=== PATIENT | male | born 1995 | race Caucasian/White ===

== ENCOUNTER 2019-07-28 14:04 | Inpatient (IN) | payer BC ==
[2019-07-28] VITALS (10 sets, daily range): BP systolic 111–141; BP diastolic 55–83
[~2019-07-28] VITALS: Ht 185.4 cm; Wt 83.0 kg
[2019-07-28] MEDS ORDERED: PROSCAR5 MG ORAL (14:25)
[2019-07-28] MEDS ORDERED: ADDERAL20 MG ORAL (14:25)
[2019-07-28] MEDS ORDERED: Isovue-300 100ml vial INJ PRN (14:30)
--- NOTE | 2019-07-28 14:31 | NUR ---
ED Nurse Note: Pt from home came in due to RLQ abd. pain since saturday. Denies nausea/vomiting but states he has been having diarrhea. Last oral intake was at 10am this morning. AAO x4 and ambulatory with unlabored breathing.
[2019-07-28] MEDS ORDERED: Omnipaque-300 100ml vial INJ PRN (14:45)
[2019-07-28] MEDS ORDERED: Ketorolac 30mg Inj IV ONE (14:45)
--- NOTE | 2019-07-28 14:50 | NUR ---
ED Nurse Note: Pt is notified not to eat or drink at this time. Pt taken down for CT abdomen.
[2019-07-28] MEDS ORDERED: Bupivacaine 0.25% Inj 30ml INJ ONE (15:08)
[2019-07-28] MEDS ORDERED: Lidocaine 1% 10mg/ml/Epi 0.005mg/ml 30ml vial INJ ONE (15:09)
[2019-07-28] MEDS ORDERED: Bupivacaine w/Epi 0.5% 30ml Vial INJ ONE (15:09)
[2019-07-28 15:13] LABS: APPEARANCE,URINE CLEAR; BILIRUBIN, URINE NEGATIVE (NEGATIVE); GLUCOSE, URINE (UA) NEGATIVE (NEGATIVE); KETONES,URINE NEGATIVE (NEGATIVE); LEUKOCYTE ESTERASE ,URINE NEGATIVE (NEGATIVE); NITRITE,URINE NEGATIVE (NEGATIVE); PH,URINE 7 (4.5-8.0); PROTEIN,URINE NEGATIVE (NEGATIVE); UROBILINOGEN,URINE NORMAL MG/DL (0.0-1.0)
[2019-07-28 15:14] LABS: BASOPHILS % (AUTO) 0.8 % (0.0-2.0); EOSINOPHILS % (AUTO) 3.1 % (0.0-3.0); HEMATOCRIT 45.7 % (42.0-52.0); HEMOGLOBIN 15.9 G/DL (14.2-18.0); LYMPHOCYTES % (AUTO) 32.5 % (20.0-45.0); MEAN CORPUSCULAR VOLUME 85 FL (80-99); NEUTROPHILS % (AUTO) 57.5 % (45.0-75.0); PLATELET COUNT 249 K/UL (150-450); RED BLOOD COUNT 5.36 M/UL (4.70-6.10); RED CELL DISTRIBUTION WIDTH 10.6 % (11.6-14.8); WHITE BLOOD COUNT 9.3 K/UL (4.8-10.8)
--- NOTE | 2019-07-28 15:21 | Consultation ---
History of Present Illness General Date patient seen: Jul 28, 2019 Reason for Hospitalization: Abdominal Pain Present Illness HPI This is a very pleasant 24-year-old otherwise healthy male who presents to the emergency department at [facility] complaining of right lower quadrant abdominal pain. Patient states pain began approximate 3 days ago as sharp right lower quadrant pain without radiation. Pain persisted and he went to his primary care physician for evaluation, who astutely considered diagnosis to be potentially appendicitis. Surgery was called to evaluate. Patient seen, patient evaluated, chart reviewed. No nausea or vomiting. Subjective fevers. Diarrhea. Pain 8 out of 10 right lower quadrant. no prior episodes. no recent travel Allergies: Coded Allergies: No Known Allergies (Unverified , 07/28/19) Medication History Scheduled Dextroamphetamine/Amphetamine (Adderall 20 mg Tablet), 20 MG ORAL DAILY, ( Reported) Finasteride* (Proscar*), 5 MG ORAL DAILY, (Reported) Patient History History Provided By: Patient, Medical Record, PMD Healthcare decision maker Resuscitation status Advanced Directive on File Past Medical/Surgical History Past Medical/Surgical History: (1) Appendicitis Review of Systems Review of Symptoms General ROS: no weight loss or fever Psychological ROS: no depression or mood changes, no memory loss Ophthalmic ROS: no visual changes or eye irritation ENT ROS: no nasal congestion, hearing loss, dizziness Allergy and Immunology ROS: no allergic symptoms or urticaria Hematological and Lymphatic ROS: no swollen glands, unusual bleeding or bruising Endocrine ROS: no polyuria, polydipsia, weight changes, temperature intolerance Respiratory ROS: no cough, shortness of breath, or wheezing Cardiovascular ROS: no chest pain or dyspnea on exertion Gastrointestinal ROS: abdominal pain, no bright red blood in stool. Musculoskeletal ROS: no myalgias or arthralgias Neurological ROS: no TIA or stroke symptoms Dermatological ROS: no new or changing skin lesions, rashes or pruritis Physical Exam Physical Exam General appearance: alert, cooperative, no distress, appears stated age Head: Normocephalic, without obvious abnormality, atraumatic Eyes: conjunctivae/corneas clear. PERRL, EOM's intact. Fundi benign Throat: Lips, mucosa, and tongue normal. Teeth and gums normal Neck: supple, symmetrical, trachea midline, no adenopathy, thyroid: not enlarged, symmetric, no tenderness/mass/nodules, no carotid bruit and no JVD Lungs: clear to auscultation bilaterally Heart: regular rate and rhythm, S1, S2 normal, no murmur, click, rub or gallop Abdomen: soft, RLQ focal-tender with rebound and guarding. Bowel sounds normal. No masses, no organomegaly Extremities: extremities normal, atraumatic, no cyanosis or edema Pulses: 2+ and symmetric Skin: Skin color, texture, turgor normal. No rashes or lesions Neurologic: Grossly normal Last 24 Hour Vital Signs Date Time Temp Pulse Resp B/P (MAP) Pulse Ox O2 Delivery O2 Flow Rate FiO2 07/28/19 14:31 88 20 Room Air 07/28/19 14:21 99.1 72 16 120/75 (90) 98 Room Air Laboratory Tests Test 07/28/19 14:40 White Blood Count Pending Red Blood Count Pending Hemoglobin Pending Hematocrit Pending Mean Corpuscular Volume Pending Mean Corpuscular Hemoglobin Pending Mean Corpuscular Hemoglobin Concent Pending Red Cell Distribution Width Pending Platelet Count Pending Mean Platelet Volume Pending Neutrophils (%) (Auto) Pending Lymphocytes (%) (Auto) Pending Monocytes (%) (Auto) Pending Eosinophils (%) (Auto) Pending Basophils (%) (Auto) Pending Prothrombin Time Pending Prothromb Time International Ratio Pending Activated Partial Thromboplast Time Pending Urine Color Pending Urine Appearance Pending Urine pH Pending Urine Specific [place] Pending Urine Protein Pending Urine Glucose (UA) Pending Urine Ketones Pending Urine Blood Pending Urine Nitrite Pending Urine Bilirubin Pending Urine Urobilinogen Pending Urine Leukocyte Esterase Pending Sodium Level Pending Potassium Level Pending Chloride Level Pending Carbon Dioxide Level Pending Blood Urea Nitrogen Pending Creatinine Pending Estimat Glomerular Filtration Rate Pending Glucose Level Pending Calcium Level Pending Total Bilirubin Pending Aspartate Amino Transf (AST/SGOT) Pending Alanine Aminotransferase (ALT/SGPT) Pending Alkaline Phosphatase Pending Total Creatine Kinase Pending Total Protein Pending Albumin Pending Globulin Pending Lipase Pending Height (Feet): 6 Height (Inches): 1.00 Weight (Pounds): 185 Medications Current Medications Medications (Trade) Dose Ordered Sig/Fabrizio Route PRN Reason Start Time Stop Time Status Last Admin Dose Admin Iohexol (OMNIPAQUE-300 100ml) 100 ml NOW PRN INJ Radiology Procedure 07/28/19 14:45 07/30/19 14:33 Sodium Chloride 1,000 ml @ 999 mls/hr Q1H1M ONCE IV 07/28/19 14:27 07/28/19 15:27 07/28/19 14:49 Assessment/Plan Problem List: (1) Appendicitis Assessment & Plan: 24M acute appendicitis. subjective fevers, focal RLQ tenderness, CT consistent with acute uncomplicated appy npo iv fluids iv abx consent to OR for lap appy thank you ICD Codes: K37 - Unspecified appendicitis SNOMED: [id number] Escobar James Jul 28, 2019 15:21
[2019-07-28 15:22] LABS: ANION GAP 6 mmol/L (5-15); BLOOD UREA NITROGEN 13 mg/dL (7-18); CALCIUM 9.9 MG/DL (8.5-10.1); CARBON DIOXIDE 29 MMOL/L (21-32); CHLORIDE 104 MMOL/L (98-107); CREATININE 0.9 MG/DL (0.55-1.30); POTASSIUM 4.4 MMOL/L (3.5-5.1); SODIUM 139 MMOL/L (136-145)
--- NOTE | 2019-07-28 15:22 | Pre-Procedure Note/Attestation ---
Pre-Procedure Note/Attestation Complete Prior to Procedure Planned Procedure: not applicable Procedure Narrative: laparoscopic appendectomy Indications for Procedure Pre-Operative Diagnosis: acute appendicitis Attestation I attest that I discussed the nature of the procedure; its benefits; risks and complications; and alternatives (and the risks and benefits of such alternatives ), prior to the procedure, with the patient (or the patient's legal public health representative). I attest that, if there was a reasonable possibility of needing a blood transfusion, the patient (or the patient's legal public health representative) was given the [facility] standardized written summary, pursuant to the [place] Blood Safety Act ([place] Health and Safety Code # 1645, as amended). I attest that I re-evaluated the patient just prior to the surgery and that there has been no change in the patient's H&P, except as documented below: Escobar James Jul 28, 2019 15:22
[2019-07-28] MEDS ORDERED: Succinylcholine 20mg/ml 10ml vial ONE (15:24)
[2019-07-28] MEDS ORDERED: Rocuronium Bromide 50mg/5ml Inj IV ONE (15:24)
[2019-07-28 15:26] LABS: ALANINE AMINOTRANSFERASE 83 U/L (12-78); ALBUMIN 4.1 G/DL (3.4-5.0); ALBUMIN/GLOBULIN RATIO 0.9 (1.0-2.7); ALKALINE PHOSPHATASE 83 U/L (46-116); ASPARTATE AMINO TRANSFERASE 27 U/L (15-37); BILIRUBIN,TOTAL 0.5 MG/DL (0.2-1.0); COLOR,URINE YELLOW; CREATINE KINASE 107 U/L (26-308)
[2019-07-28] MEDS ORDERED: Lidocaine 1% MPF 10mg/ml 5ml ONE (15:27)
[2019-07-28] MEDS ORDERED: Midazolam 2mg/2ml Inj ONE (15:27)
[2019-07-28] MEDS ORDERED: Propofol 200mg/20ml IV ONE (15:27)
[2019-07-28] MEDS ORDERED: Ketorolac 30mg Inj ONE (15:27)
[2019-07-28] MEDS ORDERED: fentaNYL 100 mcg/2 mL ONE (15:27)
[2019-07-28] MEDS ORDERED: Piperacillin/Tazobactam 3.375 GM in NS 110 ML IVPB ONE (15:30)
--- NOTE | 2019-07-28 15:33 | Emergency Room Report ---
History of Present Illness General Chief Complaint: Abdominal Pain Source: Patient, Medical Record, PMD Present Illness HPI 24-year-old male presents ED for evaluation. Patient complaining of abdominal pain. Started Saturday. Localized right lower quadrant, 8 out of 10, sharp, nonradiating. Notes nausea, denies vomiting. Notes some diarrhea. States he had a fever last 2 days. Was referred by PMD Dr. Gloria. Denies sick contacts or recent travel. No other aggravating relieving factors. Denies any other associated symptoms Allergies: Coded Allergies: No Known Allergies (Unverified , 07/28/19) Patient History Past Medical History: none Past Surgical History: none Pertinent Family History: none Social History: Denies: smoking, alcohol use, drug use Immunizations: UTD Reviewed Nursing Documentation: PMH: Agreed; PSxH: Agreed Nursing Documentation-PMH Past Medical History: No History, Except For Hx Neurological Problems: No - ADHD Review of Systems All Other Systems: negative except mentioned in HPI Physical Exam Vital Signs Date Time Temp Pulse Resp B/P (MAP) Pulse Ox O2 Delivery O2 Flow Rate FiO2 07/28/19 14:21 99.1 72 16 120/75 (90) 98 Room Air Sp02 EP Interpretation: reviewed, normal General Appearance: no apparent distress, alert, GCS 15, non-toxic Head: normocephalic, atraumatic Eyes: bilateral eye normal inspection, bilateral eye PERRL ENT: hearing grossly normal, normal pharynx, no angioedema, normal voice Neck: full range of motion, supple/symm/no masses Respiratory: chest non-tender, lungs clear, normal breath sounds, speaking full sentences Cardiovascular #1: regular rate, rhythm, no edema Cardiovascular #2: 2+ carotid (R), 2+ carotid (L), 2+ radial (R), 2+ radial (L) , 2+ dorsalis pedis (R), 2+ dorsalis pedis (L) Gastrointestinal: normal bowel sounds, soft, non-distended, no guarding, no rebound, tenderness - RLQ Rectal: deferred Genitourinary: normal inspection, no CVA tenderness Musculoskeletal: back normal, gait/station normal, normal range of motion, non- tender Neurologic: alert, oriented x3, responsive, motor strength/tone normal, sensory intact, speech normal Psychiatric: judgement/insight normal, memory normal, mood/affect normal, no suicidal/homicidal ideation Reflexes: 3+ bicep (R), 3+ bicep (L), 3+ tricep (R), 3+ tricep (L), 3+ knee (R) , 3+ knee (L) Lymphatic: no adenopathy Procedures Critical Care Time Critical Care Time i. I feel this is a highly complex case requiring extensive working including EKG/Rhythm strip, Xray/CT/US, Blood/urine lab work, repeat exams while in ED, and administration of strong opiates/narcotics for pain control, admission to hospital or close patient follow up. Total time: 30 min bedside evaluation and treatment excludes procedures (EKG). Reason for critical care: acute appendicitis Possible complications: hypotension, hypertension, OH, shock, arrhythmias, metabolic acidosis, end organ damage, respiratory failure. Interventions: labs, ivfs, meds, CT, consultation with surgery. Course: Presenting with right lower quadrant pain. Reported fever. Labs unremarkable. Clinical exam highly concerning for appendicitis. Surgery at bedside to evaluate patient. CT shows acute appendicitis. Patient made NPO. Zosyn given. Patient will be taken to the OR emergently Consultations: nursing staff, EMS, family Performed by: Dr Jack Tolerated well condition = serious j. because of unstable vital signs this patient had a condition that could potentially threaten life or limb. I feel this is a critical patient who required my full attention while patient was considered critical. Total Critical Care Time excluding procedures was greater than 35 minutes Medical Decision Making Diagnostic Impression: Primary Impression: Appendicitis Qualified Codes: K35.80 - Unspecified acute appendicitis ER Course Hospital Course 24-year-old M presents to ED with RLQ pain with anorexia, vomiting Differential diagnoses include: Appendicitis, cholecystitis, small bowel obstruction Clinical course Patient placed on stretcher. campus monitor. After initial history and physical I ordered labs, IV fluids, UA, pain medication and CT scan Labs - no leukocytosis noted, Hb/Hct stable. electrolytes ok CT abdomen and pelvis - appendicits Antibiotics given. evaluated by Dr James at bedside. Case discussed with Dr. Park and he agreed to accept the patient to his service for further care and support I feel this is a highly complex case requiring extensive working including EKG/ Rhythm strip, Xray/CT/US, Blood/urine lab work, repeat exams while in ED, and administration of strong opiates/narcotics for pain control, admission to hospital or close patient follow up. Diagnosis - appendicitis Patient taken to OR in serious condition Labs Test 07/28/19 14:40 White Blood Count 9.3 K/UL (4.8-10.8) Red Blood Count 5.36 M/UL (4.70-6.10) Hemoglobin 15.9 G/DL (14.2-18.0) Hematocrit 45.7 % (42.0-52.0) Mean Corpuscular Volume 85 FL (80-99) Mean Corpuscular Hemoglobin 29.6 PG (27.0-31.0) Mean Corpuscular Hemoglobin Concent 34.8 G/DL (32.0-36.0) Red Cell Distribution Width 10.6 % (11.6-14.8) Platelet Count 249 K/UL (150-450) Mean Platelet Volume 7.8 FL (6.5-10.1) Neutrophils (%) (Auto) 57.5 % (45.0-75.0) Lymphocytes (%) (Auto) 32.5 % (20.0-45.0) Monocytes (%) (Auto) 6.0 % (1.0-10.0) Eosinophils (%) (Auto) 3.1 % (0.0-3.0) Basophils (%) (Auto) 0.8 % (0.0-2.0) Prothrombin Time 10.4 SEC (9.30-11.50) Prothromb Time International Ratio 1.0 (0.9-1.1) Activated Partial Thromboplast Time 30 SEC (23-33) Urine Color Yellow Urine Appearance Clear Urine pH 7 (4.5-8.0) Urine Specific [place] 1.010 (1.005-1.035) Urine Protein Negative (NEGATIVE) Urine Glucose (UA) Negative (NEGATIVE) Urine Ketones Negative (NEGATIVE) Urine Blood Negative (NEGATIVE) Urine Nitrite Negative (NEGATIVE) Urine Bilirubin Negative (NEGATIVE) Urine Urobilinogen Normal MG/DL (0.0-1.0) Urine Leukocyte Esterase Negative (NEGATIVE) Sodium Level 139 MMOL/L (136-145) Potassium Level 4.4 MMOL/L (3.5-5.1) Chloride Level 104 MMOL/L (98-107) Carbon Dioxide Level 29 MMOL/L (21-32) Anion Gap 6 mmol/L (5-15) Blood Urea Nitrogen 13 mg/dL (7-18) Creatinine 0.9 MG/DL (0.55-1.30) Estimat Glomerular Filtration Rate > 60 mL/min (>60) Glucose Level 89 MG/DL (74-106) Calcium Level 9.9 MG/DL (8.5-10.1) Total Bilirubin 0.5 MG/DL (0.2-1.0) Aspartate Amino Transf (AST/SGOT) 27 U/L (15-37) Alanine Aminotransferase (ALT/SGPT) 83 U/L (12-78) Alkaline Phosphatase 83 U/L (46-116) Total Creatine Kinase 107 U/L (26-308) Total Protein 8.8 G/DL (6.4-8.2) Albumin 4.1 G/DL (3.4-5.0) Globulin 4.7 g/dL Albumin/Globulin Ratio 0.9 (1.0-2.7) Lipase 166 U/L (73-393) CT/MRI/US Diagnostic Results CT/MRI/US Diagnostic Results : Imaging Test Ordered: CT A/P Impression Findings: The appendix is dilated and there is infiltration of the periappendiceal fat. No extraluminal fluid collections or gas demonstrated. Enlarged nodes are seen in the right lower quadrant. No evidence of diverticulosis or diverticulitis. No small bowel distention. No free or loculated peritoneal gas or fluid is evident. Distal esophagus, stomach, duodenum are unremarkable. The liver demonstrates some focal fatty infiltration in the usual location adjacent to the falciform ligament. There is otherwise unremarkable. The gallbladder, bile ducts, pancreas, spleen, adrenals, kidneys are unremarkable. There is an accessory splenule. No retroperitoneal or mesenteric mass or adenopathy. No pelvic mass or adenopathy. The included lung bases are clear. The bones are unremarkable. Impression: Positive for uncomplicated acute appendicitis Findings previously discussed by phone with Dr. James Last Vital Signs Date Time Temp Pulse Resp B/P (MAP) Pulse Ox O2 Delivery O2 Flow Rate FiO2 07/28/19 15:00 99.1 79 16 132/70 100 Room Air Status: improved Disposition: ADMITTED INPATIENT Condition: Serious Referrals: NON PHYSICIAN (PCP) Manan Jack MD Jul 28, 2019 15:33
--- NOTE | 2019-07-28 15:44 | Diagnostic Imaging Report ---
Clinical Indication: Right lower quadrant abdominal pain Technique: No oral contrast utilized, per emergency room physician request IV administration nonionic contrast. Venous phase spiral acquisition obtained through the abdomen and pelvis. Multiplanar reconstructions were generated. Total dose length product 1424 mGycm. CTDIvol(s) 26 mGy. Dose reduction achieved using automated exposure control Comparison: none Findings: The appendix is dilated and there is infiltration of the periappendiceal fat. No extraluminal fluid collections or gas demonstrated. Enlarged nodes are seen in the right lower quadrant. No evidence of diverticulosis or diverticulitis. No small bowel distention. No free or loculated peritoneal gas or fluid is evident. Distal esophagus, stomach, duodenum are unremarkable. The liver demonstrates some focal fatty infiltration in the usual location adjacent to the falciform ligament. There is otherwise unremarkable. The gallbladder, bile ducts, pancreas, spleen, adrenals, kidneys are unremarkable. There is an accessory splenule. No retroperitoneal or mesenteric mass or adenopathy. No pelvic mass or adenopathy. The included lung bases are clear. The bones are unremarkable. Impression: Positive for uncomplicated acute appendicitis Findings previously discussed by phone with Dr. James The CT scanner at [facility] is accredited by the [employer] and the scans are performed using protocols designed to limit radiation exposure to as low as reasonably achievable to attain images of sufficient resolution adequate for diagnostic evaluation.
--- NOTE | 2019-07-28 15:48 | NUR ---
ED Nurse Note: Pt consent for appendectomy signed by tp. Pt transported to OR via gurney with all his belongings. Report given to Ignacio RN/OR nurse.
[2019-07-28] MEDS ORDERED: Hydromorphone 0.5mg/0.5ml inj IVP PRN ×2 (16:30)
[2019-07-28] MEDS ORDERED: LR 1000ml 1,000 ML IVLG SCH (16:33)
--- NOTE | 2019-07-28 16:33 | Anethesia Preoperative Eval ---
Anesthesia Pre-op PMH/ROS General Date of Evaluation: Jul 28, 2019 Time of Evaluation: 15:40 Anesthesiologist: Suzy ASA Score: ASA 2 Mallampati Score Class I : Soft palate, uvula, fauces, pillars visible Class II: Soft palate, uvula, fauces visible Class III: Soft palate, base of uvula visible Class IV: Only hard plate visible Mallampati Classification: Class II Surgeon: Nessa Diagnosis: Acute appendicitis Surgical Procedure: Appendectomy Anesthesia History: none Social History: drug use - marijuana Family History: no anesthesia problems Allergies: Coded Allergies: No Known Allergies (Unverified , 07/28/19) Medications: see eMAR Patient NPO?: Yes Past Medical History Cardiovascular: Denies: HTN, CAD, SC, valve dz, arrhythmia, other Pulmonary: Denies: asthma, COPD, ERENDIRA, other Gastrointestinal/Genitourinary: Reports: GERD - mild; Denies: CRI, ESRD, other Neurologic/Psychiatric: Reports: depression/anxiety, other - ADDA; Denies: dementia, CVA, TIA Endocrine: Denies: DM, hypothyroidism, steroids, other HEENT: Denies: cataract (L), cataract (R), glaucoma, [place] (L), [place] (R), other Hematology/Immune: Denies: anemia, DVT, bleeding disorder, other Musculoskeletal/Integumentary: Denies: OA, RA, DJD, DDD, edema, other PMH Narrative: abdominal pain, nausea, diagnosed with acute aapy for Sx PSxH Narrative: None Anesthesia Pre-op Phys. Exam Physician Exam Last Vital Signs Date Time Temp Pulse Resp B/P (MAP) Pulse Ox O2 Delivery O2 Flow Rate FiO2 07/28/19 15:48 98.9 82 15 129/76 98 Room Air Constitutional: NAD Neurologic: CN 2-12 intact Cardiovascular: RRR, no M/R/G Respiratory: CTA Gastrointestinal: other - tender on palpation Airway Exam Mallampati Score: Class II MO: full Neck: flexible ROM: full Teeth: intact Dentures: no upper, no lower Anesthesia Pre-op A/P Labs Hematology Test 07/28/19 14:40 White Blood Count 9.3 K/UL (4.8-10.8) Red Blood Count 5.36 M/UL (4.70-6.10) Hemoglobin 15.9 G/DL (14.2-18.0) Hematocrit 45.7 % (42.0-52.0) Mean Corpuscular Volume 85 FL (80-99) Mean Corpuscular Hemoglobin 29.6 PG (27.0-31.0) Mean Corpuscular Hemoglobin Concent 34.8 G/DL (32.0-36.0) Red Cell Distribution Width 10.6 % (11.6-14.8) L Platelet Count 249 K/UL (150-450) Mean Platelet Volume 7.8 FL (6.5-10.1) Neutrophils (%) (Auto) 57.5 % (45.0-75.0) Lymphocytes (%) (Auto) 32.5 % (20.0-45.0) Monocytes (%) (Auto) 6.0 % (1.0-10.0) Eosinophils (%) (Auto) 3.1 % (0.0-3.0) H Basophils (%) (Auto) 0.8 % (0.0-2.0) Coagulation Test 07/28/19 14:40 Prothrombin Time 10.4 SEC (9.30-11.50) Prothromb Time International Ratio 1.0 (0.9-1.1) Activated Partial Thromboplast Time 30 SEC (23-33) Chemistry Test 07/28/19 14:40 Sodium Level 139 MMOL/L (136-145) Potassium Level 4.4 MMOL/L (3.5-5.1) Chloride Level 104 MMOL/L (98-107) Carbon Dioxide Level 29 MMOL/L (21-32) Anion Gap 6 mmol/L (5-15) Blood Urea Nitrogen 13 mg/dL (7-18) Creatinine 0.9 MG/DL (0.55-1.30) Estimat Glomerular Filtration Rate > 60 mL/min (>60) Glucose Level 89 MG/DL (74-106) Calcium Level 9.9 MG/DL (8.5-10.1) Total Bilirubin 0.5 MG/DL (0.2-1.0) Aspartate Amino Transf (AST/SGOT) 27 U/L (15-37) Alanine Aminotransferase (ALT/SGPT) 83 U/L (12-78) H Alkaline Phosphatase 83 U/L (46-116) Total Creatine Kinase 107 U/L (26-308) Total Protein 8.8 G/DL (6.4-8.2) H Albumin 4.1 G/DL (3.4-5.0) Globulin 4.7 g/dL Albumin/Globulin Ratio 0.9 (1.0-2.7) L Lipase 166 U/L (73-393) Risk Assessment & Plan Assessment: ASA 2 E Plan: GA with ETT PONV prevention Status Change Before Surgery: No Pre-Antibiotics Drug: see orders Ramses Almonte MD Jul 28, 2019 16:33
[2019-07-28] MEDS ORDERED: Morphine Sulfate 10mg/ml Inj ONE (16:35)
[2019-07-28] MEDS ORDERED: Glycopyrrolate 0.2mg/ml 1ml Vial ONE (16:38)
[2019-07-28] MEDS ORDERED: NS Irrig 1000ml IRRIG ONE (16:39)
[2019-07-28] MEDS ORDERED: Meperidine 50mg/ml Inj(FOR RIGORS ONLY) IV PRN (16:45)
[2019-07-28] MEDS ORDERED: Metoclopramide 10mg/2ml Inj IVP PRN (16:45)
[2019-07-28] MEDS ORDERED: DiphenhydrAMINE 50mg/ml Inj IVP PRN (16:45)
[2019-07-28] MEDS ORDERED: Ketorolac 30mg Inj IV PRN (16:45)
--- NOTE | 2019-07-28 17:09 | Brief Operative Note ---
Immediate Post Operative Note Operative Note Pre-op Diagnosis: acute appendicitis Procedure: lap appy Post-op Diagnosis: same as pre-op Surgeon: shaunna Anesthesiologist: andrew Anesthesia: general, local Specimen: yes Complications: none Condition: stable Fluids: see records Estimated Blood Loss: minimal Drains: none Implant(s) used?: No Escobar James Jul 28, 2019 17:09
[2019-07-28] MEDS ORDERED: Sterile Water Irrig 1000ml IRRIG ONE (17:12)
[2019-07-28] MEDS ORDERED: NS Irrig 1000ml ONE (17:12)
[2019-07-28] MEDS ORDERED: LR 1000ml ONE (17:12)
[2019-07-28] MEDS ORDERED: Milk of Magnesia 30ml Ud ORAL PRN (17:15)
[2019-07-28] MEDS ORDERED: HYDROcodone/Acetamin 10/325 tab ORAL PRN (17:15)
[2019-07-28] MEDS ORDERED: Morphine Sulfate 2mg/ml Inj(IV/IM USE ONLY) IVP PRN (17:15)
[2019-07-28] MEDS ORDERED: Sennosides 8.6mg tab ORAL PRN (17:15)
[2019-07-28] MEDS ORDERED: HYDROcodone/Acetamin 5/325 tab ORAL PRN (17:15)
--- NOTE | 2019-07-28 17:20 | Immediate Post-Op Evaluation ---
Immediate Post-Op Evalulation Immediate Post-Op Evalulation Procedure: Laparoscopic appendectomy Date of Evaluation: Jul 28, 2019 Time of Evaluation: 17:19 IV Fluids: 1500 Blood Products: none Estimated Blood Loss: 50 Urinary Output: none Blood Pressure Systolic: 132 Blood Pressure Diastolic: 76 Pulse Rate: 88 Respiratory Rate: 22 O2 Sat by Pulse Oximetry: 99 Temperature (Fahrenheit): 97.6 Pain Score (1-10): 2 Nausea: No Vomiting: No Complications none Patient Status: reacts, patent, extubated, none Hydration Status: adequate Ramses Almonte MD Jul 28, 2019 17:20
--- NOTE | 2019-07-28 18:30 | NUR ---
NURSE NOTES: REC'D FROM PACU SP LAPAROSCOPIC APPENDECTOMY. AWAKEALERT. V/S TAKEN. PAIN SCALE 6/10. ABDOMINAL SCOPE SITES DRESSING X3 DRY AND INTACT. IV INFUSING. IN NO ACUTE DISTRESS.
--- NOTE | 2019-07-28 19:00 | NUR ---
NURSE NOTES: QUIET IN BED. IN NO ACUTE DISTRESS.
[2019-07-28] MEDS: Morphine Sulfate 2mg/ml Inj(IV/IM USE ONLY) IVP PRN (19:13)
--- NOTE | 2019-07-28 19:47 | NUR ---
HAND-OFF: Report given to Jori WRIGHT RN.
--- NOTE | 2019-07-28 19:48 | NUR ---
NURSE NOTES: Received report & pt from HAILEE De Santiago. Pt lying in bed, a&ox4, on O2 via NC @ 2LPM. No s/s of acute distress & c/o 8/10 pain. Will give PRN pain med when due & pt verbalized understanding. Surgical lap sites x3 C/D/I. IV site intact with IVF running as ordered. Bed in lowest position, call light within reach. Will continue to monitor.
--- NOTE | 2019-07-28 19:57 | History and Physical ---
History of Present Illness General Date patient seen: Jul 28, 2019 Reason for Hospitalization: Abdominal Pain Present Illness HPI This is a 24 year old male with a PMHx ADHD who presented to [facility] after 3 days of abdominal pain. The pain is constant, sharp, RLQ, 8/10 and has been gradually worsening over this time period. He also reportedly had a fever of 101 yesterday. He has had associated decreased appetite and nausea but no vomiting or diarrhea. ER course: afebrile, vital signs stable. WBC 9.3, CMP unremarkable except for mildly elevated ALT at 83. Lipase 166. UA negative. CT A/P with contrast showed acute uncomplicated appendicitis. General Surgery consulted who recommended laporscopic surgery. Patient consented and taken to the OR. Allergies: NKDA Medications: Finasteride 1mg PO daily (male pattern alopecia) Adderall 15mg IR Daily PMhx: ADHD PsurgHx None Family Hx: denies history of DM or HTN SocHx Tobacco: denies Etoh: occasional, socially Drugs: Marijuana 3-4 times per week Allergies: Coded Allergies: No Known Allergies (Unverified , 07/28/19) Medication History Scheduled Dextroamphetamine/Amphetamine (Adderall 20 mg Tablet), 20 MG ORAL DAILY, ( Reported) Finasteride* (Proscar*), 5 MG ORAL DAILY, (Reported) Patient History History Provided By: Patient Healthcare decision maker N Resuscitation status Full Code Advanced Directive on File Review of Systems Constitutional: Denies: chills, sweats, fever, malaise, weakness, other Eye: Denies: eye pain, blurred vision, tearing, double vision, nose pain, nose congestion, acuity changes, discharge, other ENT: Denies: ear pain, ear discharge, nose pain, nose congestion, throat pain, throat swelling, mouth pain, hearing loss, nasal discharge, other Respiratory: Denies: cough, orthopnea, shortness of breath, stridor, wheezing, RESENDEZ, sputum, other Cardiovascular: Denies: chest pain, edema, palpitations, syncope, PND, other Gastrointestinal: Reports: abdominal pain, nausea; Denies: constipation, diarrhea, vomiting, melena, hematemesis, other Genitourinary: Denies: discharge, dysuria, frequency, hematuria, pain, retention, incontinence, urgency, vag bleed/dc, other Musculoskeletal: Denies: no symptoms, back pain, gout, joint pain, joint swelling, muscle pain, muscle stiffness, other Skin: Denies: rash, change in color, change in hair/nails, dryness, lesions, other Psychiatric: Denies: prior hx, anxiety, depressed feelings, emotional problems , SI, HI, hallucinations, other Neurological: Denies: headache, numbness, paresthesia, seizure, tingling, tremors, focal weakness, syncope, dizziness, other Endocrine: Denies: excessive sweating, flushing, intolerance to temperature, increased thirst, increased urine, unexplained weight loss, other Hematologic/Lymphatic: Denies: see HPI, anemia, blood clots, easy bleeding, easy bruising, swollen glands, diathesis, other Physical Exam General Appearance: WD/WN, no apparent distress, alert Lines, tubes and drains: peripheral HEENT: normocephalic, atraumatic Neck: non-tender, normal alignment, supple Respiratory/Chest: chest wall non-tender, lungs clear, normal breath sounds, no respiratory distress Cardiovascular/Chest: normal peripheral pulses, normal rate, regular rhythm, no JVD Abdomen: normal bowel sounds, soft, other - RLQ tenderness to palpation. Without rebound. Extremities: normal range of motion, non-tender, normal inspection Skin Exam: normal pigmentation, warm/dry Neurologic: story writer II-XII grossly normal, no motor/sensory deficits, alert, oriented x 3 Musculoskeletal: normal muscle bulk, no effusion Last 24 Hour Vital Signs Date Time Temp Pulse Resp B/P (MAP) Pulse Ox O2 Delivery O2 Flow Rate FiO2 07/28/19 18:30 Nasal Cannula 3.0 07/28/19 18:30 97.6 62 18 118/83 (95) 100 07/28/19 18:07 97.9 62 16 123/63 100 Nasal Cannula 3 07/28/19 17:52 63 19 141/75 100 Nasal Cannula 3 07/28/19 17:45 67 22 121/72 100 Nasal Cannula 3 07/28/19 17:35 62 14 112/68 100 Nasal Cannula 3 07/28/19 17:26 61 15 111/55 100 Simple Mask 6 07/28/19 17:21 67 14 123/60 100 Simple Mask 6 07/28/19 17:20 88 22 99 07/28/19 17:16 97.8 97 22 132/77 100 Simple Mask 6 07/28/19 15:48 98.9 82 15 129/76 98 Room Air 07/28/19 15:20 98.9 07/28/19 15:00 99.1 79 16 132/70 100 Room Air 07/28/19 14:31 88 20 Room Air 07/28/19 14:21 99.1 72 16 120/75 (90) 98 Room Air Laboratory Tests Test 07/28/19 14:40 White Blood Count 9.3 K/UL (4.8-10.8) Red Blood Count 5.36 M/UL (4.70-6.10) Hemoglobin 15.9 G/DL (14.2-18.0) Hematocrit 45.7 % (42.0-52.0) Mean Corpuscular Volume 85 FL (80-99) Mean Corpuscular Hemoglobin 29.6 PG (27.0-31.0) Mean Corpuscular Hemoglobin Concent 34.8 G/DL (32.0-36.0) Red Cell Distribution Width 10.6 % (11.6-14.8) L Platelet Count 249 K/UL (150-450) Mean Platelet Volume 7.8 FL (6.5-10.1) Neutrophils (%) (Auto) 57.5 % (45.0-75.0) Lymphocytes (%) (Auto) 32.5 % (20.0-45.0) Monocytes (%) (Auto) 6.0 % (1.0-10.0) Eosinophils (%) (Auto) 3.1 % (0.0-3.0) H Basophils (%) (Auto) 0.8 % (0.0-2.0) Prothrombin Time 10.4 SEC (9.30-11.50) Prothromb Time International Ratio 1.0 (0.9-1.1) Activated Partial Thromboplast Time 30 SEC (23-33) Urine Color Yellow Urine Appearance Clear Urine pH 7 (4.5-8.0) Urine Specific [place] 1.010 (1.005-1.035) Urine Protein Negative (NEGATIVE) Urine Glucose (UA) Negative (NEGATIVE) Urine Ketones Negative (NEGATIVE) Urine Blood Negative (NEGATIVE) Urine Nitrite Negative (NEGATIVE) Urine Bilirubin Negative (NEGATIVE) Urine Urobilinogen Normal MG/DL (0.0-1.0) Urine Leukocyte Esterase Negative (NEGATIVE) Sodium Level 139 MMOL/L (136-145) Potassium Level 4.4 MMOL/L (3.5-5.1) Chloride Level 104 MMOL/L (98-107) Carbon Dioxide Level 29 MMOL/L (21-32) Anion Gap 6 mmol/L (5-15) Blood Urea Nitrogen 13 mg/dL (7-18) Creatinine 0.9 MG/DL (0.55-1.30) Estimat Glomerular Filtration Rate > 60 mL/min (>60) Glucose Level 89 MG/DL (74-106) Calcium Level 9.9 MG/DL (8.5-10.1) Total Bilirubin 0.5 MG/DL (0.2-1.0) Aspartate Amino Transf (AST/SGOT) 27 U/L (15-37) Alanine Aminotransferase (ALT/SGPT) 83 U/L (12-78) H Alkaline Phosphatase 83 U/L (46-116) Total Creatine Kinase 107 U/L (26-308) Total Protein 8.8 G/DL (6.4-8.2) H Albumin 4.1 G/DL (3.4-5.0) Globulin 4.7 g/dL Albumin/Globulin Ratio 0.9 (1.0-2.7) L Lipase 166 U/L (73-393) Height (Feet): 6 Height (Inches): 1.00 Weight (Pounds): 185 Medications Current Medications Medications (Trade) Dose Ordered Sig/Fabrizio Route PRN Reason Start Time Stop Time Status Last Admin Dose Admin Acetaminophen (Tylenol) 650 mg Q6H PRN ORAL Mild Pain (Pain Scale 1-3) 07/28/19 17:15 08/27/19 17:14 Acetaminophen/ Hydrocodone Bitart (Brickeys 10/325) 1 tab Q4H PRN ORAL Severe Pain (Pain Scale 7-10) 07/28/19 17:15 08/04/19 17:14 Acetaminophen/ Hydrocodone Bitart (Brickeys 5/325) 1 tab Q4H PRN ORAL Moderate Pain (Pain Scale 4-6) 07/28/19 17:15 08/04/19 17:14 Al Hydroxide/Mg Hydroxide (Mylanta) 15 ml Q6H PRN ORAL DYSPEPSIA 07/28/19 17:15 08/27/19 17:14 Dextrose (Dextrose 50%) 25 ml Q30M PRN IV Hypoglycemia 07/28/19 16:30 08/27/19 16:29 Dextrose (Dextrose 50%) 50 ml Q30M PRN IV Hypoglycemia 07/28/19 16:30 08/27/19 16:29 Diphenhydramine HCl (Benadryl) 25 mg Q8H PRN ORAL Itching/Pruritis 07/28/19 17:15 08/27/19 17:14 Docusate Sodium (Colace) 100 mg TWICE A DAY ORAL 07/29/19 09:00 08/28/19 08:59 Iohexol (OMNIPAQUE-300 100ml) 100 ml NOW PRN INJ Radiology Procedure 07/28/19 14:45 07/30/19 14:33 Ketorolac Tromethamine (Toradol 30mg) 15 mg Q6H PRN IV breakthrough pain 07/28/19 17:15 08/02/19 17:14 Magnesium Hydroxide (Mom) 30 ml BIDPRN PRN ORAL Constipation 07/28/19 17:15 08/27/19 17:14 Morphine Sulfate (Morphine Sulfate) 1 mg Q4H PRN IVP pain scale 1-3 07/28/19 17:15 08/04/19 17:14 Morphine Sulfate (Morphine Sulfate) 2 mg Q4H PRN IVP pain scale 4-6 07/28/19 17:15 08/04/19 17:14 07/28/19 19:13 Morphine Sulfate (Morphine Sulfate) 4 mg Q4H PRN IVP pain score 7-10 07/28/19 17:15 08/04/19 17:14 Ondansetron HCl (Zofran) 4 mg Q6H PRN IVP Nausea & Vomiting 07/28/19 17:15 08/27/19 17:14 Piperacillin Sod/ Tazobactam Sod 3.375 gm/Sodium Chloride 110 ml @ 27.5 mls/hr EVERY 8 HOURS IVPB 07/28/19 22:00 08/04/19 21:59 Sennosides (Senokot) 8.6 mg BIDPRN PRN ORAL Constipation 07/28/19 17:15 08/27/19 17:14 Sodium Chloride 1,000 ml @ 75 mls/hr [id number] IVLG 10/1/19 15:21 08/27/19 15:20 Temazepam (Restoril) 7.5 mg DAILYPRN PRN ORAL Insomnia 07/28/19 17:15 08/04/19 17:14 Assessment/Plan Problem List: (1) Appendicitis ICD Codes: K37 - Unspecified appendicitis SNOMED: 97047994 Qualifiers: Qualified Codes: K35.80 - Unspecified acute appendicitis (2) ADHD ICD Codes: F90.9 - Attention-deficit hyperactivity disorder, unspecified type SNOMED: 597287510 (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 - Androgenic alopecia, unspecified SNOMED: 65670644 (4) Elevated alanine aminotransferase (ALT) level ICD Codes: R74.0 - Nonspecific elevation of levels of transaminase and lactic acid dehydrogenase [LDH] SNOMED: 803244602 (5) Marijuana smoker ICD Codes: F12.90 - Cannabis use, unspecified, uncomplicated SNOMED: 493241546 Assessment/Plan: 24 year old male admitted for acute uncomplicated appendicitis #Acute uncomplicated appendicitis -Admit to [facility] with telemetry -Blood cultures x 2 -Zosyn 3.375gm IV Q8hr -IV fluids: NS 75cc/hr -Regular diet after surgery -Appreciate general surgery recommendations: Dr. James -Discuss with ID regarding length of antibiotics -Pain control: IV dilaudid 0.2mg Q4hr PRN moderate, IV dilaudid 0.4mg Q4hr PRN severe #ADHD -continue home adderall IR 15mg PO daily #Male pattern alopecia -Continue home finasteride 1mg PO daily #marijuana use -counseled on cessation FENPPx DVTPPx: SCDs GIPPx: non needed, patient tolerating diet Fluids: NS @ 75cc/hr Diet: regular after surgery Lines: peripheral PT/OT: pending 71 minutes was dedicated to patient encounter. >50% spent on counseling and care coordination with nursing and patient. Time of note may not reflect time patient was seen. Sg Ac D.O. Jul 28, 2019 19:57
[2019-07-28] MEDS: Ketorolac 30mg Inj IV PRN (20:16)
--- NOTE | 2019-07-28 20:45 | Operative Note - Dictated ---
DATE OF OPERATION: 07/28/2019 PREOPERATIVE DIAGNOSIS: Acute appendicitis. POSTOPERATIVE DIAGNOSIS: Acute appendicitis. OPERATION PERFORMED: Laparoscopic appendectomy. ATTENDING SURGEON: Escobar James M.D. ORACLE ERP ARCHITECT: None. ANESTHESIOLOGIST: Ramses Almonte M.D. ANESTHESIA: General GETA. ESTIMATED BLOOD LOSS: Minimal. IV FLUIDS: Please see anesthesia records. COMPLICATIONS: None. DRAINS: None. COUNTS: Sponge and needle count correct x2. WOUND CONSULTATION: Class III. ANTIBIOTICS: Zosyn 3.375 given in the emergency department. SPECIMENS: Appendix sent to pathology for review. INDICATIONS FOR PROCEDURE: This is a 24-year-old male presented to the emergency department at [facility] complaining of worsening right lower quadrant abdominal pain. CT scan consistent with acute uncomplicated appendicitis. Examination with focal right lower quadrant tenderness, rebound and guarding. Surgery was indicated and recommended. Risks, benefits, alternatives discussed with the patient in detail who expressed understanding and consented to surgery. OPERATIVE NOTE: The patient was taken to the operating room and placed on the operating table in supine position with left arm tucked. All bony prominences well padded. SCDs were placed. Preoperative time-out was taken, identifying the patient, procedure, operative staff, and surgical staff. General anesthesia was induced and the patient was intubated. No Saunders catheter was inserted given the patient voided prior to entering the operating room. A infraumbilical incision was made and using fresh #11 scalpel was carried down to the fascia, which was elevated and incised. Entry into the abdomen was obtained using the open Altagracia technique without complication. A 12 mm Altagracia trocar was inserted and the abdomen was insufflated to 12 to 15 mmHg. The patient tolerated the insufflation well. Right upper quadrant was otherwise normal with normal appearing liver and gallbladder. Left lower quadrant was normal appearing liver and stomach. Portions of the omentum, intestines that could be identified were otherwise healthy. There were no inguinal hernias identified and the pelvis and left lower quadrant were otherwise normal. The right lower quadrant and the appendix was attached to the anterior abdominal wall with omentum draped over it with thickening and inflammation consistent with preoperative diagnosis. Secondary trocars placed under direct visualization beginning with a 11 mm left lower quadrant port site followed by a 5 mm suprapubic port site. Laparoscopic graspers were used and omentum was taken down from the appendix. The appendix was freed from its anterior abdominal attachment and inflammatory attachments. The base of the tenia was followed from the cecum until the base of the appendix identified. A window was made at the base of the appendix between the appendix and mesoappendix. A laparoscopic linear stapler was then used and the base of the appendix was divided without complication. Following this, in a similar fashion, the mesoappendix was divided with a laparoscopic linear stapler. The laparoscopic clips were used to obtain hemostasis from oozing at the staple line. The appendix was placed in an endoscopic retrieval bag and removed at the end of the procedure through the umbilical trocar port site. The pelvis and right lower quadrant were irrigated and suctioned until clean. Thorough evaluation of the abdomen as well as staple lines were done and everything was hemostatic and otherwise stable. No intraoperative complication noted. Secondary trocars were removed under direct visualization followed by the umbilical trocar site. The local anesthetic was infiltrated throughout the procedure for the patient's comfort at the incision sites and the port sites. The umbilical port site fascia was reapproximated using a #0 [id number] Vicryl suture. The remaining skin incisions were reapproximated using 4-0 Monocryl subcuticular interrupted sutures. Steri-Strips and skin glue were applied. The patient tolerated the procedure well, was extubated and taken to postanesthetic care unit in stable condition. Escobar James M.D. DR: Dana JOB#: [id number] CC:
--- NOTE | 2019-07-28 21:00 | NUR ---
NURSE NOTES: Pt had 500cc clear emesis. Zofran given. Will continue to monitor.
[2019-07-28] MEDS: Morphine Sulfate 4mg/ml Inj (IV USE ONLY) IVP PRN (21:21)
[2019-07-28] MEDS ORDERED: Piperacillin/Tazobactam 3.375 GM in NS 110 ML IVPB SCH (21:30)
[2019-07-28] MEDS: Piperacillin/Tazobactam 3.375 GM in NS 110 ML IVPB SCH (21:54)
--- NOTE | 2019-07-28 22:30 | NUR ---
NURSE NOTES: Called Dr. Ac's paging system. Left a message regarding pt's home meds. Dr. Weiss called back & gave an order to continue home meds & start tomorrow AM 07/29.
[2019-07-29] VITALS: BP 96/52
[2019-07-29] MEDS: Morphine Sulfate 2mg/ml Inj(IV/IM USE ONLY) IVP PRN ×4 (00:05→15:12)
[2019-07-29 04:00] VITALS: BP 105/63
[2019-07-29] MEDS: Piperacillin/Tazobactam 3.375 GM in NS 110 ML IVPB SCH ×3 (05:01→21:35)
[2019-07-29 05:31] LABS: BASOPHILS % (AUTO) 0.4 % (0.0-2.0); EOSINOPHILS % (AUTO) 1.4 % (0.0-3.0); HEMATOCRIT 37.4 % (42.0-52.0); HEMOGLOBIN 13.3 G/DL (14.2-18.0); LYMPHOCYTES % (AUTO) 19.3 % (20.0-45.0); MEAN CORPUSCULAR VOLUME 85 FL (80-99); MONOCYTES % (AUTO) 6.2 % (1.0-10.0); NEUTROPHILS % (AUTO) 72.6 % (45.0-75.0); PLATELET COUNT 211 K/UL (150-450); RED BLOOD COUNT 4.41 M/UL (4.70-6.10); RED CELL DISTRIBUTION WIDTH 10.7 % (11.6-14.8); WHITE BLOOD COUNT 15.1 K/UL (4.8-10.8)
[2019-07-29 06:04] LABS: ALANINE AMINOTRANSFERASE 57 U/L (12-78); ALBUMIN/GLOBULIN RATIO 0.8 (1.0-2.7); ALKALINE PHOSPHATASE 29 U/L (46-116); ANION GAP 6 mmol/L (5-15); ASPARTATE AMINO TRANSFERASE 19 U/L (15-37); BILIRUBIN,TOTAL 1.1 MG/DL (0.2-1.0); BLOOD UREA NITROGEN 12 mg/dL (7-18); CARBON DIOXIDE 27 MMOL/L (21-32); CHLORIDE 106 MMOL/L (98-107); CREATININE 1.1 MG/DL (0.55-1.30); POTASSIUM 4.4 MMOL/L (3.5-5.1); SODIUM 139 MMOL/L (136-145)
[2019-07-29 06:27] LABS: BILIRUBIN,DIRECT 0.2 MG/DL (0.0-0.3)
--- NOTE | 2019-07-29 06:40 | NUR ---
NURSE NOTES: Pt complaining of sore throat. Called & left msg to & Dr. Weiss called back with a new order. Also informed MD re: WBC 15.1 & pt afebrile with no new order.
--- NOTE | 2019-07-29 07:10 | NUR ---
HAND-OFF: Report given to HAILEE De Santiago. Pt in stable condition.
--- NOTE | 2019-07-29 07:38 | NUR ---
NURSE NOTES: ASLEEP. NO C/O PAIN .IN NO DISTRESS.
[2019-07-29 08:00] VITALS: BP 112/52
[2019-07-29] MEDS ORDERED: ACETAMINOPHEN-1 EAC1 ORAL (08:00)
[2019-07-29] MEDS ORDERED: COLACE100 MG ORAL (08:00)
[2019-07-29] MEDS ORDERED: TORADOL10 MG PO (08:02)
[2019-07-29] MEDS: Ketorolac 30mg Inj IV PRN (08:23)
[2019-07-29] MEDS: Docusate 100mg cap ORAL SCH ×2 (08:25→17:46)
--- NOTE | 2019-07-29 09:34 | 48 Hour Post Anesthesia Eval ---
Post Anesthesia Evaluation Procedure: Laparoscopic appendectomy Date of Evaluation: Jul 29, 2019 Time of Evaluation: 09:33 Blood Pressure Systolic: 116 0: 72 Pulse Rate: 64 Respiratory Rate: 20 Temperature (Fahrenheit): 97.6 O2 Sat by Pulse Oximetry: 98 Airway: patent Nausea: No Vomiting: No Pain Intensity: 3 Hydration Status: adequate Cardiopulmonary Status: stable Mental Status/LOC: patient returned to baseline Follow-up Care/Observations: n/a Post-Anesthesia Complications: none Follow-up care needed: N/A Ramses Almonte MD Jul 29, 2019 09:34
--- NOTE | 2019-07-29 09:41 | NUR ---
NURSE NOTES: OOB,AMBULATED OUT IN THE ESPARZA WITH ASSIST TOLERATED.
--- NOTE | 2019-07-29 10:23 | NUR ---
NURSE NOTES: dr trinh pitt called re:pt's reconciliation home meds. left message to return call
[2019-07-29 12:00] VITALS: BP 120/65
[2019-07-29] MEDS: Simethicone 80mg tab ORAL PRN ×2 (14:31→18:33)
--- NOTE | 2019-07-29 15:56 | NUR ---
NURSE NOTES: temp 101.5. tylenol 650mg given po. encouraged to do deep breathing and use of incentive spirometer. ambulated out in the heath tolerated.
[2019-07-29 16:00] VITALS: BP 124/88
--- NOTE | 2019-07-29 16:00 | General Progress Note ---
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 - Androgenic alopecia, unspecified SNOMED: 06933590 (4) Elevated alanine aminotransferase (ALT) level ICD Codes: R74.0 - Nonspecific elevation of levels of transaminase and lactic acid dehydrogenase [LDH] SNOMED: 411795295 (5) Marijuana smoker ICD Codes: F12.90 - Cannabis use, unspecified, uncomplicated SNOMED: 426097406 Assessment/Plan: 24 year old male admitted for acute uncomplicated appendicitis #Acute uncomplicated appendicitis s/p appendectomy 07/28/19, POD #1 -Admit to [facility] with telemetry -Blood cultures x 2 -Zosyn 3.375gm IV Q8hr -IV fluids: NS 75cc/hr -Regular diet -Appreciate general surgery recommendations: Dr. James. No Abx needed upon discharge. -Pain control: IV morphine PRN. Will attempt PO pain meds with anti-nausea medication if possible. Unable to discharge at this point because requiring frequent IV pain medication and cannot tolerate PO pain meds. #leukocytosis, likely reactive. No other SIRS criteria - abx as above - continue to monitor #ADHD -continue home adderall IR 15mg PO daily #Male pattern alopecia -Continue home finasteride 1mg PO daily #marijuana use -counseled on cessation FENPPx DVTPPx: SCDs GIPPx: non needed, patient tolerating diet Fluids: NS @ 75cc/hr Diet: regular Lines: peripheral PT/OT: pending Discussed with RN and general surgery. 37 minutes was dedicated to patient encounter. >50% spent on counseling and care coordination with nursing and patient. Time of note may not reflect time patient was seen. Subjective Constitutional: Reports: no symptoms; Denies: chills, diaphoresis, fever, malaise, weakness, other HEENT: Denies: eye pain, blurred vision, tearing, double vision, ear pain, ear discharge, nose pain, nose congestion, throat pain, throat swelling, mouth pain , mouth swelling, other Cardiovascular: Denies: chest pain, edema, irregular heart rate, lightheadedness, palpitations, syncope, other Respiratory: Denies: cough, orthopnea, shortness of breath, SOB with excertion , SOB at rest, sputum, stridor, wheezing, other Gastrointestinal/Abdominal: Denies: abdomen distended, abdominal pain, black stools, tarry stools, blood in stool, constipated, diarrhea, difficulty swallowing, nausea, poor appetite, poor fluid intake, rectal bleeding, vomiting , other Genitourinary: Denies: burning, discharge, frequency, flank pain, hematuria, incontinence, pain, urgency, other Neurologic/Psychiatric: Denies: anxiety, depressed, emotional problems, headache, numbness, paresthesia, pre-existing deficit, seizure, tingling, tremors, weakness, other Endocrine: Denies: excessive sweating, flushing, intolerance to cold, intolerance to heat, increased hunger, increased thirst, increased urine, unexplained weight gain, unexplained weight loss, other Hematologic/Lymphatic: Denies: anemia, easy bleeding, easy bruising, other Allergies: Coded Allergies: No Known Allergies (Unverified , 07/28/19) Subjective No acute events overnight per nursing. S/p appendectomy: Surgery went well yesterday. Still having a lot of post operative pain and nausea. Difficulty holding down food. Emesis x 1 of 500cc. + Flatus but no bowel movement yet. Vitals stable. Denies fever, chills. Objective Last 24 Hour Vital Signs Date Time Temp Pulse Resp B/P (MAP) Pulse Ox O2 Delivery O2 Flow Rate FiO2 07/29/19 12:00 99.8 68 18 120/65 (83) 98 07/29/19 11:33 99.8 07/29/19 09:34 64 20 98 07/29/19 09:00 Room Air 07/29/19 08:53 97.3 07/29/19 08:00 98.6 78 18 112/52 (72) 99 07/29/19 04:00 97.3 56 20 105/63 (77) 100 07/29/19 00:00 98.1 63 20 96/52 (67) 98 07/28/19 22:34 Nasal Cannula 2.0 07/28/19 20:00 97.4 60 20 125/77 (93) 99 07/28/19 18:30 Nasal Cannula 3.0 07/28/19 18:30 97.6 62 18 118/83 (95) 100 07/28/19 18:07 97.9 62 16 123/63 100 Nasal Cannula 3 07/28/19 17:52 63 19 141/75 100 Nasal Cannula 3 07/28/19 17:45 67 22 121/72 100 Nasal Cannula 3 07/28/19 17:35 62 14 112/68 100 Nasal Cannula 3 07/28/19 17:26 61 15 111/55 100 Simple Mask 6 07/28/19 17:21 67 14 123/60 100 Simple Mask 6 07/28/19 17:20 88 22 99 07/28/19 17:16 97.8 97 22 132/77 100 Simple Mask 6 Intake and Output 07/28/19 07/29/19 19:00 07:00 Intake Total 2600 ml 990 ml Output Total 50 ml 500 ml Balance 2550 ml 490 ml Intake Oral 0 ml 240 ml IV Total 2600 ml 750 ml Output Emesis 500 ml Estimated Blood Loss 50 ml # Voids 1 1 Laboratory Tests 07/29/19 05:00: White Blood Count 15.1#H, Red Blood Count 4.41L, Hemoglobin 13.3L, Hematocrit 37.4L, Mean Corpuscular Volume 85, Mean Corpuscular Hemoglobin 30.1, Mean Corpuscular Hemoglobin Concent 35.5, Red Cell Distribution Width 10.7L, Platelet Count 211, Mean Platelet Volume 7.9, Neutrophils (%) (Auto) 72.6, Lymphocytes (%) (Auto) 19.3L, Monocytes (%) (Auto) 6.2, Eosinophils (%) (Auto) 1.4, Basophils (%) (Auto) 0.4, Sodium Level 139, Potassium Level 4.4, Chloride Level 106, Carbon Dioxide Level 27, Anion Gap 6, Blood Urea Nitrogen 12, Creatinine 1.1, Estimat Glomerular Filtration Rate > 60, Glucose Level 97, Calcium Level 9.0, Total Bilirubin 1.1H, Direct Bilirubin 0.2, Aspartate Amino Transf (AST/SGOT) 19, Alanine Aminotransferase (ALT/SGPT) 57, Alkaline Phosphatase 29L, Total Protein 6.8, Albumin 3.0L, Globulin 3.8, Albumin/ Globulin Ratio 0.8L Height (Feet): 6 Height (Inches): 1.00 Weight (Pounds): 183 General Appearance: WD/WN, no apparent distress, alert EENT: PERRL/EOMI Neck: non-tender, normal alignment, supple Cardiovascular: normal peripheral pulses, normal rate, regular rhythm Respiratory/Chest: chest wall non-tender, lungs clear, normal breath sounds Abdomen: normal bowel sounds, soft, other - abdominal incision sites C/d/I. TTP in LLQ without rebound. 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 Jul 29, 2019 15:59
--- NOTE | 2019-07-29 16:05 | NUR ---
CASE MANAGEMENT:REVIEW 24 YR OLD MALE PRESENTED TO ER CC: ABDOMINAL PAIN SI: ACUTE APPENDICITIS 99.1 72 16 120/75 98% ON RA IS: 1L NS BOLUS X2 IV TORADOL X2 IV ZOSYN : TO SURGERY INTERQUAL CRITERIA MET
[2019-07-29] MEDS ORDERED: NS 275ml ONE (16:55)
[2019-07-29] MEDS ORDERED: Tubing IV Secondary IV ONE (16:55)
--- NOTE | 2019-07-29 16:57 | NUR ---
NURSE NOTES: temp rechecked.100.5.
--- NOTE | 2019-07-29 19:00 | NUR ---
NURSE NOTES: QUIET IN BED. IN NO ACUTE DISTRESS.
--- NOTE | 2019-07-29 19:15 | NUR ---
HAND-OFF: Report given to Bryce ROSARIO RN.
[2019-07-29 20:00] VITALS: BP 118/68
[2019-07-29] MEDS: Morphine Sulfate 4mg/ml Inj (IV USE ONLY) IVP PRN (20:00)
[2019-07-29] MEDS ORDERED: Milk of Magnesia 30ml Ud ORAL SCH (20:00)
[2019-07-30 00:15] VITALS: BP 127/68
[2019-07-30] MEDS: Morphine Sulfate 4mg/ml Inj (IV USE ONLY) IVP PRN (02:12)
[2019-07-30 04:39] VITALS: BP 108/56
[2019-07-30] MEDS: Piperacillin/Tazobactam 3.375 GM in NS 110 ML IVPB SCH (05:20)
[2019-07-30 06:36] LABS: BASOPHILS % (AUTO) 0.5 % (0.0-2.0); EOSINOPHILS % (AUTO) 3.3 % (0.0-3.0); HEMATOCRIT 34.6 % (42.0-52.0); LYMPHOCYTES % (AUTO) 28.1 % (20.0-45.0); MEAN CORPUSCULAR VOLUME 85 FL (80-99); MONOCYTES % (AUTO) 8.3 % (1.0-10.0); NEUTROPHILS % (AUTO) 59.8 % (45.0-75.0); PLATELET COUNT 200 K/UL (150-450); RED BLOOD COUNT 4.08 M/UL (4.70-6.10); RED CELL DISTRIBUTION WIDTH 10.7 % (11.6-14.8); WHITE BLOOD COUNT 11.3 K/UL (4.8-10.8)
[2019-07-30 06:47] LABS: ANION GAP 8 mmol/L (5-15); BLOOD UREA NITROGEN 9 mg/dL (7-18); CALCIUM 8.6 MG/DL (8.5-10.1); CARBON DIOXIDE 28 MMOL/L (21-32); CHLORIDE 106 MMOL/L (98-107); CREATININE 1.1 MG/DL (0.55-1.30); POTASSIUM 3.9 MMOL/L (3.5-5.1); SODIUM 141 MMOL/L (136-145)
--- NOTE | 2019-07-30 07:18 | NUR ---
Nursingn Notes Reporrt given to KEITH
--- NOTE | 2019-07-30 07:20 | NUR ---
NURSE NOTES: Received report from HAILEE Welsh. Rounding done with outgoing nurse. Pt a/o x 4, in bed. No respiratory distress noted. Denies any pain at this time. Abdominal surgical site dressing is C/D/I. Bed in lowest position, call light within reach. Will continue to monitor.
[2019-07-30 08:00] VITALS: BP 115/69
[2019-07-30] MEDS: Docusate 100mg cap ORAL SCH (08:32)
--- NOTE | 2019-07-30 09:38 | NUR ---
NURSE NOTES: Dr. James saw the pt and ordered d/c home. Noted and carried out.
--- NOTE | 2019-07-30 11:21 | NUR ---
*-* INSURANCE *-* ALL CLINICALS AND REVIEWS HAVE BEEN FAXED TO: [facility] TRACKING#[id number] NO NURSE AUDITOR ASSIGNED YET #[phone] FAX#[phone] REVIEWS/CLINICALS
[2019-07-30] MEDS ORDERED: Flu Vaccine Pts Less than 65 Years old IM ONE (11:30)
--- NOTE | 2019-07-30 12:00 | NUR ---
NURSE NOTES: Discharge instruction/home meds were given to pt. All belongings checked with pt and given to pt. Removed IV access/arm band. Pt a/o x 4. Discharged with his father in stable condition.
--- NOTE | 2019-07-30 16:57 | Discharge Summary ---
Discharge Summary Hospital Course Date of Admission Jul 28, 2019 at 18:20 Date of Discharge Jul 30, 2019 at 12:04 Admitting Diagnosis acute appendicitis (non transferrable) Reason for Hospitalization: acute appendicitis HPI Isai Valdes is a 24 year old male who was admitted on Jul 28, 2019 at 18:20 for Appendicitis Consultations General Surgery Procedures Laproscopic appendectomy Hospital Course 24 year old male admitted for acute uncomplicated appendicitis. Confirmed on CT abdomen/pelvis in the ER. Febrile to 101. No WBC, hemodynamically stable. Placed on Zosyn. Underwent uncomplicated appendectomy 07/28/19. No complications. Post-operatively patient had some nausea and difficulty with pain control so kept overnight. Had one temperature to 101 but no other fevers, hemodyncamically stable. White count trending down on discharge. Abdominal incision sites clean/dry and intact. Patient cleared to go home by General surgery. Needs follow up in one week. Provided with PO pain meds by surgery. #Acute uncomplicated appendicitis s/p appendectomy 07/28/19, POD #2 -Zosyn 3.375gm IV Q8hr- discontinued -S/p IV fluids: NS 75cc/hr -Regular diet - PO pain meds and antinausea meds -Appreciate general surgery recommendations: Dr. James. No Abx needed upon discharge. #leukocytosis, likely reactive. 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 Pain in RLQ, no rebound or guarding. No distention Ext: No LE edema bilaterally Neuro: No focal signs. Cn 2-12 intact bilaterally Skin: No rashes, lesions or ulcers Labs: reviewed Imaging: reviewed Discussed with RN, patient, patient's family, and general surgery. >30 minutes was dedicated to patient encounter. >50% spent on counseling and care coordination with nursing and patient. Time of note may not reflect time patient was seen. Discharge Condition Upon Discharge: improving Discharge Disposition Patient was discharged to Discharge Diagnoses: (1) Abdominal pain (2) Appendicitis (3) ADHD (4) Elevated alanine aminotransferase (ALT) level (5) Marijuana smoker (6) Male pattern alopecia Sg Ac D.O. Jul 30, 2019 16:57
== END 2019-07-30 12:04 | disposition home or self-care (01) | DRG 343 ==
LOC: EMR 14:50 → 3E 18:20 → EEVIPCON 18:20
PROC: 0DTJ4ZZ Resection of Appendix, Percutaneous Endoscopic Approach (ICD-10-PCS; principal; 2019-07-28 15:45)
DX: K35.80 Unspecified acute appendicitis (principal); F90.9 Attention-deficit hyperactivity disorder, unspecified type; L64.9 Androgenic alopecia, unspecified; R74.8 Abnormal levels of other serum enzymes; F12.90 Cannabis use, unspecified, uncomplicated; Z23 Encounter for immunization
CPT/HCPCS: 36415; 74177; 80048; 80053; 81003; 82248; 82550; 83690; 85025; 85610; 85730; 86850; 86900; 86901; 90689; 94003; 94150; 96361; 96374; 99291; J2250; J2405

== ENCOUNTER 2019-09-15 19:12 | Emergency (ER) | payer BC ==
[~2019-09-15] VITALS: Ht 185.4 cm; Wt 83.9 kg
[~2019-09-15 19:12] MED LIST: ACETAMINOPHEN-1 EAC1 ORAL; ADDERAL20 MG ORAL; COLACE100 MG ORAL; PROSCAR5 MG ORAL; TORADOL10 MG PO
[2019-09-15 19:57] VITALS: BP 131/76
--- NOTE | 2019-09-15 20:28 | Emergency Room Report ---
History of Present Illness General Chief Complaint: Skin Rash/Abscess Source: Medical Record Present Illness Allergies: Coded Allergies: No Known Allergies (Unverified , 07/28/19) Nursing Documentation-H Past Medical History: No History, Except For Hx Cardiac Problems: No Hx Cancer: No Hx Gastrointestinal Problems: No Hx Neurological Problems: No Physical Exam Vital Signs Date Time Temp Pulse Resp B/P (MAP) Pulse Ox O2 Delivery O2 Flow Rate FiO2 09/15/19 19:20 99.0 76 18 131/76 (94) 96 Room Air Medical Decision Making PA Attestation Dr. Bello Is my supervising Physician whom patient management has been discussed with. Diagnostic Impression: Primary Impression: Paronychia of finger of right hand Last Vital Signs Date Time Temp Pulse Resp B/P (MAP) Pulse Ox O2 Delivery O2 Flow Rate FiO2 09/15/19 19:57 99.0 18 131/76 96 Room Air 09/15/19 19:20 76 Disposition: HOME, SELF-CARE Condition: Stable Departure Forms: Return to Work Return to Work Date: Sep 19, 2019 Other Restrictions: May return Sooner if Symptoms have resolved. Return to Full Activity: Sep 19, 2019 Patient Instructions: Paronychia, [id number] Additional Instructions: Take medications as directed. * Warm water soaks with Epson salt up to 8x per day * Do not squeeze or attempt to manipulate the affected area *recommend dairy product daily such as yogurt while taking antibiotic. Follow up with a Primary Care Provider in 3-5 days, even if your symptoms have resolved. Return sooner to ED if new symptoms occur, or current symptoms become worse. - Please note that this Emergency Department Report was dictated using [employer] ad clerk technology software, occasionally this can lead to erroneous entry secondary to interpretation by the dictation equipment. Yasmin Shields Sep 15, 2019 20:28
[2019-09-15] MEDS ORDERED: Neosporin Oint Ud Pkt TOPIC ONE (20:30)
[2019-09-15] MEDS ORDERED: MUPIROCIN22 GM TOPIC (20:30)
[2019-09-15] MEDS ORDERED: CLINDAMYCIN HC300 MG ORAL (20:30)
[2019-09-15] MEDS ORDERED: ACETAMINOPHEN-1 EAC1 ORAL (20:30)
[2019-09-15 20:46] VITALS: BP 131/76
== END 2019-09-15 22:00 | disposition home or self-care (01) ==
LOC: EMR 21:46
DX: L03.011 Cellulitis of right finger (principal)
CPT/HCPCS: 99282

== ENCOUNTER 2020-05-25 21:24 | Emergency (ER) | payer BC ==
[~2020-05-25] VITALS: Ht 185.4 cm; Wt 88.5 kg
[~2020-05-25 21:24] MED LIST changes: +CLINDAMYCIN HC300 MG ORAL; +MUPIROCIN22 GM TOPIC
[2020-05-25 21:40] VITALS: BP 132/74
--- NOTE | 2020-05-25 21:42 | NUR ---
ED Nurse Note: WALKED IN TO ED C/O TESTICULAR PAIN ONSET 1.5 HOURS AGO. PT STATES HX VARICOSE VEIN IN LEFT TESTICLE. STATES 10/10 ACHING PAIN. DENIES ANY DISCHARGE OR DYSURIA. VSS, NAD, AAOX4, AMBULATORY, URINE COLLECTED AND SENT TO LAB.
--- NOTE | 2020-05-25 21:45 | NUR ---
ED Nurse Note: paged US
--- NOTE | 2020-05-25 22:04 | NUR ---
ED Nurse Note: ermd at bedside
[2020-05-25 22:05] LABS: BILIRUBIN, URINE NEGATIVE (NEGATIVE); GLUCOSE, URINE (UA) NEGATIVE (NEGATIVE); KETONES,URINE NEGATIVE (NEGATIVE); LEUKOCYTE ESTERASE ,URINE NEGATIVE (NEGATIVE); NITRITE,URINE NEGATIVE (NEGATIVE); PH,URINE 5 (4.5-8.0); PROTEIN,URINE 1+ (NEGATIVE); UROBILINOGEN,URINE NORMAL MG/DL (0.0-1.0)
[2020-05-25 22:06] LABS: APPEARANCE,URINE CLEAR; COLOR,URINE YELLOW
--- NOTE | 2020-05-25 22:10 | Emergency Room Report ---
History of Present Illness General Chief Complaint: Male Urogenital Problems Source: Patient Present Illness HPI This is a 24-year-old male with a history of varicocele in his testicle. This was diagnosed by ultrasound about 3 to 4 years ago. Patient has no problem until tonight. He complaining of left testicular pain. Onset about 4 hours. He has some dysuria. No frequency of urgency. No discharge. He had sexual intercourse last night. No history of STD. Pain is 8 out of 10. Worse with movement. Better with rest. Denies any trauma. 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 COVID-19 Screening: Negative COVID-19 COVID-19 Testing Source: 1WK AGO @ [facility] Patient History Past Medical History: see triage record, old chart reviewed Past Surgical History: none Pertinent Family History: none Social History: Denies: smoking Immunizations: other Reviewed Nursing Documentation: PMH: Agreed; PSxH: Agreed Nursing Documentation-PMH Hx Cardiac Problems: No Hx Cancer: No Hx Gastrointestinal Problems: No Hx Neurological Problems: No Review of Systems Eye: Denies: eye pain, blurred vision ENT: Denies: ear pain, nose congestion, throat swelling Respiratory: Denies: cough, shortness of breath Cardiovascular: Denies: chest pain, palpitations Gastrointestinal: Denies: abdominal pain, diarrhea, nausea, vomiting Genitourinary: Reports: dysuria Musculoskeletal: Denies: back pain, joint pain Skin: Denies: rash Neurological: Denies: headache, numbness Endocrine: Denies: increased thirst, increased urine Hematologic/Lymphatic: Denies: easy bruising All Other Systems: negative except mentioned in HPI Physical Exam Vital Signs Date Time Temp Pulse Resp B/P (MAP) Pulse Ox O2 Delivery O2 Flow Rate FiO2 05/25/20 21:35 98.4 85 20 137/91 (106) 99 Room Air Vitals unremarkable Sp02 EP Interpretation: reviewed, normal General Appearance: well appearing, no apparent distress, alert Head: normocephalic, atraumatic Eyes: bilateral eye PERRL, bilateral eye EOMI ENT: hearing grossly normal, normal pharynx Neck: full range of motion, supple, no meningismus Respiratory: chest non-tender, lungs clear, normal breath sounds Cardiovascular #1: regular rate, rhythm, no murmur Gastrointestinal: normal bowel sounds, non tender, no mass, no organomegaly, no bruit, non-distended Genitourinary: other - Left testicle is tender and swollen. Normal lie. Cremasteric reflex intact. Penis exam normal. Musculoskeletal: back normal, normal range of motion, gait/station normal Psychiatric: mood/affect normal Medical Decision Making Diagnostic Impression: Primary Impression: Varicocele ER Course Patient presents with left testicular pain. Ultrasound show varicocele. This probably secondary to sexual intercourse from last night. No evidence of any torsion or epididymitis. No evidence of UTI. Will discharge home. He has an appointment with urologist on Saturday. CT/MRI/US Diagnostic Results CT/MRI/US Diagnostic Results : Imaging Test Ordered: Testicular ultrasound Impression Read by universal grinder tool. Right varicocele. No torsion. No epididymitis. Last Vital Signs Date Time Temp Pulse Resp B/P (MAP) Pulse Ox O2 Delivery O2 Flow Rate FiO2 05/25/20 21:40 98.4 76 20 132/74 99 Room Air Status: improved Disposition: HOME, SELF-CARE Condition: Stable Scripts Hydrocodone Bit/Acetaminophen 5-325* (NORCO 5-325 TABLET*) 1 Each Tablet 1 TAB ORAL Q6H PRN for FOR PAIN, #20 TAB 0 Refills Prov: Bill Bazan MD 05/25/20 Additional Instructions: Keep appointment with your urologist. Return if symptoms worsen. Bill Bazan MD May 25, 2020 22:10
[2020-05-25] MEDS ORDERED: HYDROcodone/Acetamin 5/325 tab ORAL ONE (22:15)
--- NOTE | 2020-05-25 22:45 | NUR ---
ED Nurse Note: US AT BEDSIDE
[2020-05-25] MEDS ORDERED: NORCO 5-325 TA1 EAC1 ORAL (23:23)
[2020-05-25 23:25] VITALS: BP 126/62
--- NOTE | 2020-05-25 23:25 | NUR ---
ER DISCHARGE NOTE: Patient is cleared to be discharged per ERMD, pt is aox4, on room air, with stable vital signs. pt was given dc and prescription instructions, pt was able to verbalize understanding, pt id band removed without complications. pt is able to ambulate with steady gait. pt took all belongings.
--- NOTE | 2020-05-25 23:37 | Diagnostic Imaging Report ---
EXAM: US Scrotum CLINICAL HISTORY: PAIN TECHNIQUE: Real-time ultrasound of the scrotum with color Doppler and image documentation. COMPARISON: No relevant prior studies available. FINDINGS: Right testicle: No mass. No torsion. One tiny calcification. Left testicle: No mass. No torsion. Epididymides: Unremarkable. Scrotum: Left-sided varicocele. No hydroceles. IMPRESSION: No acute findings. Left-sided varicocele.
== END 2020-05-25 23:25 | disposition home or self-care (01) ==
LOC: EEVIPCON 22:10 → EMR 22:10
DX: I86.1 Scrotal varices (principal); R30.0 Dysuria
CPT/HCPCS: 76870; 81003; 99284